=== PATIENT | male | born 1970 | race Caucasian/White ===

== ENCOUNTER 2021-07-17 22:14 | Emergency (ER) | payer BC | END 2021-07-17 23:37 | disposition home or self-care (01) | LOC: ER1 22:14 | DX: S81.811A Laceration without foreign body, right lower leg, initial encounter (principal); S80.812A Abrasion, left lower leg, initial encounter; V86.99XA Unspecified occupant of other special all-terrain or other off-road motor vehicle injured in nontraffic accident, initial encounter | CPT/HCPCS: 12002; 73590; 90471; 90715; 99283 ==